=== PATIENT | male | born 1955 | race Caucasian/White ===

== ENCOUNTER 2016-12-21 11:33 | Day surgery (SDC) | payer OTHER ==
[~2016-12-21] VITALS: Ht 170.2 cm; Wt 90.7 kg
[~2016-12-21 11:33] MED LIST: FLEXERIL10 MG PO; HYDROCODON-ACE1 EAC7 PO; LEVO-T150 MCG PO; LIDODERM 5% P1 PATCH TD; LYRICA75 MG PO; MOTRIN800 MG PO; VICODIN,LORT1 TABLET PO
== END 2016-12-21 13:40 | disposition home or self-care (01) ==
LOC: PAIN 11:33 → SDC 12:30 → PAIN 13:40
DX: G50.0 Trigeminal neuralgia (principal); G89.4 Chronic pain syndrome; R68.84 Jaw pain; Z79.891 Long term (current) use of opiate analgesic
CPT/HCPCS: J1100; J2250; J3010

== ENCOUNTER 2017-02-18 08:28 | Day surgery (SDC) | payer OTHER ==
[~2017-02-18] VITALS: Ht 170.2 cm; Wt 90.7 kg
== END 2017-02-18 10:20 | disposition home or self-care (01) ==
LOC: PAIN 08:28 → SDC 09:15 → PAIN 09:15
DX: G50.0 Trigeminal neuralgia (principal); G89.4 Chronic pain syndrome; Z79.891 Long term (current) use of opiate analgesic; E03.9 Hypothyroidism, unspecified; N40.1 Benign prostatic hyperplasia with lower urinary tract symptoms
CPT/HCPCS: J1100; J2250; J3010